=== PATIENT | male | born 1945 | race Hispanic/Latino ===

== ENCOUNTER 2019-08-09 08:57 | Day surgery (SDC) | payer MEDICARE ==
[2019-08-07 16:36] LABS: BASOPHILS % (AUTO) 0.4 % (0.0-5.0); EOSINOPHILS % (AUTO) 4.4 % (0.0-8.0); HEMATOCRIT 43.1 % (42-54); LYMPHOCYTES % (AUTO) 19.7 % (21.0-51.0); MEAN CORPUSCULAR HEMOGLOBIN 26.6 pg (27.0-33.0); MEAN CORPUSCULAR HGB CONC 30.4 g/dL (32.0-36.0); MEAN CORPUSCULAR VOLUME 87.6 fL (79-99); MONOCYTES % (AUTO) 7.4 % (3.0-13.0); NEUTROPHILS % (AUTO) 67.7 % (40.0-77.0); PLATELET COUNT (AUTO) 277 K/uL (130-400); RED BLOOD CELL COUNT(AUTO) 4.92 MIL/uL (4.50-6.20); RED CELL DISTRIBUTION WIDTH 13.7 % (11.0-15.5)
[2019-08-07 16:47] LABS: POTASSIUM 4.8 mmol/L (3.5-5.1)
[2019-08-07 17:39] VITALS: BP 170/96
[2019-08-09] VITALS (13 sets, daily range): BP systolic 125–148; BP diastolic 68–86
[~2019-08-09] VITALS: Ht 190.5 cm; Wt 98.1 kg
[2019-08-09] MEDS: CEFTRIAXONE SODIUM 1 GM IVP SCH ×2 (06:00→11:00)
[~2019-08-09 08:57] MED LIST: OMEP20TA25 PO; PRAV40TA3 PO; TAMS-1 PO
[2019-08-09] MEDS ORDERED: LIDOCAINE PF 2% 5ML ABBOJECT ONE (10:11)
[2019-08-09] MEDS ORDERED: FENTANYL CITRATE PF 50 MCG/1 ML 2ML VIAL ONE (10:12)
[2019-08-09] MEDS ORDERED: MIDAZOLAM HCL 1 MG/ML 2ML VIAL ONE (10:12)
[2019-08-09] MEDS ORDERED: PROPOFOL 10 MG/ML 20ML VIAL IV ONE (10:12)
[2019-08-09] MEDS ORDERED: LACTATED RINGERS 1000ML 1,000 ML IV ONE (10:20)
[2019-08-09] MEDS ORDERED: FAMOTIDINE/PF 20 MG/2 ML VIAL IV ONE (10:56)
[2019-08-09] MEDS ORDERED: DiphenhydrAMINE HCL 50 MG/ML VIAL ONE (11:03)
[2019-08-09] MEDS ORDERED: ROCURONIUM 10MG/1ML SYR 10 MG/ML ML ONE (11:04)
[2019-08-09] MEDS ORDERED: GLYCOPYRROLATE 1 MG/5 ML SYRINGE ONE (11:16)
[2019-08-09] MEDS ORDERED: ONDANSETRON HCL 4 MG/2 ML VIAL ONE (11:16)
[2019-08-09] MEDS ORDERED: NEOSTIGMINE 5MG/5ML SYR IV ONE (11:16)
[2019-08-09] MEDS ORDERED: OPIUM/BELLADONNA ALKALOIDS 1 EACH SUPP.RECT RC ONE (11:30)
[2019-08-09] MEDS ORDERED: EPHEDRINE SULFATE 50 MG/ML AMPULE ONE (12:03)
[2019-08-09] MEDS ORDERED: GENTAMICIN 80 MG/NS 100 ML PB 100 ML IV ONE (12:03)
[2019-08-09] MEDS ORDERED: MEPERIDINE-PF 25 MG/ML SYG ONE (13:32)
--- NOTE | 2019-08-09 14:00 | NUR ---
PATIENT ARRIVED TO DAY PATIENT VIA STRETCHER BY MISTY CHAPPELL. PATIENT ALERT AND ORIENTED, DROWSY. PATIENT DENIES ANY PAIN AT THIS TIME. HAHN CATHETER DRAINING PINK TINGED URINE. 1430 HAHN CATHETER BAG SWITCHED TO LEG BAG AND PATIENT'S SPOUSE INSTRUCTED ON HAHN CATH CARE
[2019-08-09] MEDS ORDERED: PHENAZOPYRIDINE HCL 200 MG TABLET ONE (14:24)
--- NOTE | 2019-08-09 15:05 | NUR ---
PATIENT DISCHARGED FROM FACILITY VIA WHEELCHAIR BY CLEMENTE HUBER RN. PATIENT ASSISTED INTO PRIVATE VEHICLE DRIVEN BY SPOUSE,
== END 2019-08-09 15:05 | disposition home or self-care (01) ==
LOC: DAH 08:57
PROVIDERS: ATTEND Urology
DX: N40.1 Benign prostatic hyperplasia with lower urinary tract symptoms (principal); R33.8 Other retention of urine; R31.0 Gross hematuria; E78.5 Hyperlipidemia, unspecified; K21.9 Gastro-esophageal reflux disease without esophagitis; Z88.8 Allergy status to other drugs, medicaments and biological substances; Z98.890 Other specified postprocedural states; Z87.891 Personal history of nicotine dependence; Z79.899 Other long term (current) drug therapy; Z83.3 Family history of diabetes mellitus; Z82.49 Family history of ischemic heart disease and other diseases of the circulatory system
CPT/HCPCS: 36415; 52001; 52648; 80048; 85025; A4215; A4221; A4222; A4223; A4340; A4354; A4510; A4600; A4663; A4930; A6260; J0696; J1200; J1580; J2001; J2175; J2250; J2405; J2704; J2710; J3010; J3490 ×3; J7120 ×2; 93005

== ENCOUNTER → 2020-01-16 | Outpatient (CLI) | payer MEDICARE | END | disposition home or self-care (01) | LOC: RAH 14:14 | PROVIDERS: ATTEND Urology | DX: N40.0 Benign prostatic hyperplasia without lower urinary tract symptoms (principal); N28.1 Cyst of kidney, acquired; R31.0 Gross hematuria | CPT/HCPCS: 76770 ==